=== PATIENT | female | born 1945 | race Caucasian/White ===

== ENCOUNTER 2017-03-10 13:15 | Inpatient (IN) | payer MEDICARE ==
[~2017-03-10] VITALS: Ht 165.1 cm; Wt 77.7 kg
[2017-03-10] MEDS ORDERED: SODIUM CHLORIDE 0.9% 1,000 ML IV ONE (13:37)
[2017-03-10] MEDS ORDERED: SODIUM CHLORIDE 0.9% 1,000ML IVBOLUS ONE (14:00)
[2017-03-10 14:41] LABS: BASOPHILS % (AUTO) 1 % (0-1); EOSINOPHILS # (AUTO) 0.02 x10^3/uL (0-0.4); EOSINOPHILS % (AUTO) 0 % (1-7); LYMPHOCYTES # (AUTO) 1.12 x10^3/uL (1-3.4); LYMPHOCYTES % (AUTO) 8 % (22-44); MD NO; MEAN CORPUSCULAR HEMOGLOBIN 31.2 pg (27.0-34.8); MEAN CORPUSCULAR HGB CONC 33.3 g/dL (32.4-35.8); MEAN CORPUSCULAR VOLUME 93.5 fL (80-100); MEAN PLATELET VOLUME 7.7 fL (7.4-10.4); MONOCYTES # (AUTO) 0.81 x10^3/uL (0.2-0.8); MONOCYTES % (AUTO) 6 % (2-9); NEUTROPHILS # (AUTO) 12.54 x10^3/uL (1.8-6.8); NEUTROPHILS % (AUTO) 86 % (42-75); PLATELET COUNT 226 x10^3/uL (130-400); RED BLOOD COUNT 3.69 x10^6/uL (3.82-5.3); RED CELL DISTRIBUTION WIDTH 13.8 % (9.6-15.2)
[2017-03-10 14:50] LABS: ALANINE AMINOTRANSFERASE 16 U/L (12-78); ALBUMIN 3.4 g/dL (3.4-5.0); ANION GAP 7 mmol/L (5-15); CHLORIDE 98 mmol/L (98-107); CREATININE 0.81 mg/dL (0.55-1.02)
[2017-03-10 14:53] LABS: ALKALINE PHOSPHATASE 118 U/L (45-117); BILIRUBIN,TOTAL 0.7 mg/dL (0.2-1.0); TOTAL PROTEIN 7.1 g/dL (6.4-8.2)
[2017-03-10 14:59] LABS: RAPID INFLUENZA A Negative (Negative); RAPID INFLUENZA B Negative (Negative)
[2017-03-10] MEDS ORDERED: [UNRECOGNIZED DRUG - OTHER] (15:15)
[2017-03-10] MEDS ORDERED: HYDR200T PO (15:15)
[2017-03-10] MEDS ORDERED: METH2.5T PO (15:15)
[2017-03-10] MEDS ORDERED: FURO40TA6 PO (15:15)
[2017-03-10] MEDS ORDERED: OMNIPAQUE 350 MG/ML, 100ML BOTTLE ONE (16:07)
[2017-03-10] MEDS ORDERED: CEFTRIAXONE PMX 1GM/50ML 50 ML IVPB ONE (17:00)
[2017-03-10] MEDS ORDERED: CEFTRIAXONE PMX 1GM/50ML 50 ML ONE (17:10)
[2017-03-10 17:49] VITALS: BP 133/85
[2017-03-10 17:54] VITALS: BP 133/85
[2017-03-10] MEDS ORDERED: DOCUSATE 100 MG CAPSULE PO PRN (19:00)
[2017-03-10] MEDS ORDERED: ONDANSETRON ODT 4 MG PO PRN (19:00)
[2017-03-10] MEDS ORDERED: ENALAPRILAT 1.25 MG/ML, 2ML IVPush PRN (19:00)
[2017-03-10 20:12] VITALS: BP 138/74
[2017-03-10] MEDS: PRAVASTATIN 20 MG TABLET PO SCH (20:33)
[2017-03-10] MEDS: TEMAZEPAM 15 MG CAPSULE PO PRN (20:33)
[2017-03-10] MEDS: HYDROXYCHLOROQUINE 200 MG TABLET PO SCH (20:33)
[2017-03-10] MEDS: ROPINIROLE 0.5MG TABLET PO SCH (20:33)
[2017-03-10] MEDS: ENOXAPARIN 40 MG/0.4 ML SQ SCH (20:33)
[2017-03-10] MEDS ORDERED: ALBUTEROL SULFATE 2.5 MG/3 ML ONE (22:21)
[2017-03-10] MEDS: ALBUTEROL SULFATE 2.5 MG/3 ML NPPB SCH (23:04)
[2017-03-11 02:30] VITALS: BP 109/71
[2017-03-11] MEDS: CEFTRIAXONE PMX 1GM/50ML 50 ML IV SCH ×2 (05:07→16:49)
[2017-03-11 05:22] LABS: BASOPHILS % (AUTO) 0 % (0-1); EOSINOPHILS # (AUTO) 0.04 x10^3/uL (0-0.4); EOSINOPHILS % (AUTO) 0 % (1-7); LYMPHOCYTES # (AUTO) 1.11 x10^3/uL (1-3.4); LYMPHOCYTES % (AUTO) 11 % (22-44); MD NO; MEAN CORPUSCULAR HEMOGLOBIN 31.9 pg (27.0-34.8); MEAN CORPUSCULAR HGB CONC 34.2 g/dL (32.4-35.8); MEAN CORPUSCULAR VOLUME 93.5 fL (80-100); MONOCYTES # (AUTO) 0.59 x10^3/uL (0.2-0.8); MONOCYTES % (AUTO) 6 % (2-9); NEUTROPHILS # (AUTO) 8.17 x10^3/uL (1.8-6.8); NEUTROPHILS % (AUTO) 82 % (42-75); PLATELET COUNT 189 x10^3/uL (130-400); RED BLOOD COUNT 3.26 x10^6/uL (3.82-5.3); RED CELL DISTRIBUTION WIDTH 13.3 % (9.6-15.2)
[2017-03-11 05:28] LABS: CHLORIDE 99 mmol/L (98-107)
[2017-03-11 05:32] LABS: ANION GAP 5 mmol/L (5-15); CALCIUM 8.1 mg/dL (8.5-10.1); CREATININE 0.76 mg/dL (0.55-1.02)
[2017-03-11] MEDS: ALBUTEROL SULFATE 2.5 MG/3 ML NPPB SCH ×4 (07:00→20:00)
[2017-03-11 07:59] VITALS: BP 130/85
[2017-03-11] MEDS: HYDROXYCHLOROQUINE 200 MG TABLET PO SCH ×2 (08:53→20:49)
[2017-03-11] MEDS: DULOXETINE 30 MG CAPSULE.DR PO SCH (08:53)
[2017-03-11 13:51] VITALS: BP 124/66
[2017-03-11 19:40] VITALS: BP 104/57
[2017-03-11] MEDS: TEMAZEPAM 15 MG CAPSULE PO PRN (20:47)
[2017-03-11] MEDS: PRAVASTATIN 20 MG TABLET PO SCH (20:48)
[2017-03-11] MEDS: ENOXAPARIN 40 MG/0.4 ML SQ SCH (20:49)
[2017-03-11] MEDS: ROPINIROLE 0.5MG TABLET PO SCH (20:49)
[2017-03-12] MEDS: GUAIFENESIN/DM 200-20MG, 10ML UDC PO PRN ×4 (01:03→23:58)
[2017-03-12 01:27] VITALS: BP 127/76
[2017-03-12] MEDS: CEFTRIAXONE PMX 1GM/50ML 50 ML IV SCH ×2 (04:37→17:06)
[2017-03-12] MEDS: AZITHROMYCIN 500 MG in SODIUM CHLORIDE 0.9% 250 ML IV SCH (05:16)
[2017-03-12 06:16] LABS: ALBUMIN 2.8 g/dL (3.4-5.0); ANION GAP 6 mmol/L (5-15); CHLORIDE 104 mmol/L (98-107); IRON LEVEL 19 mcg/dL (50-170)
[2017-03-12 06:24] LABS: BASOPHILS # (AUTO) 0.02 x10^3/uL (0-0.1); BASOPHILS % (AUTO) 0 % (0-1); EOSINOPHILS # (AUTO) 0.09 x10^3/uL (0-0.4); EOSINOPHILS % (AUTO) 2 % (1-7); LYMPHOCYTES # (AUTO) 0.81 x10^3/uL (1-3.4); LYMPHOCYTES % (AUTO) 14 % (22-44); MD SCAN; MEAN CORPUSCULAR HEMOGLOBIN 31.1 pg (27.0-34.8); MEAN CORPUSCULAR HGB CONC 33.2 g/dL (32.4-35.8); MEAN CORPUSCULAR VOLUME 93.7 fL (80-100); MEAN PLATELET VOLUME 7.9 fL (7.4-10.4); MONOCYTES # (AUTO) 0.44 x10^3/uL (0.2-0.8); MONOCYTES % (AUTO) 8 % (2-9); NEUTROPHILS # (AUTO) 4.46 x10^3/uL (1.8-6.8); NEUTROPHILS % (AUTO) 77 % (42-75); PLATELET COUNT 206 x10^3/uL (130-400); RED BLOOD COUNT 3.06 x10^6/uL (3.82-5.3); RED CELL DISTRIBUTION WIDTH 13.3 % (9.6-15.2)
[2017-03-12 06:34] LABS: ABSOLUTE RETICS # 0.032 x10^6/uL (0.5-2.5); RED BLOOD COUNT 3.05 x10^6/uL (3.82-5.3); RETICULOCYTE COUNT % 1.03 % (0.5-1.5)
[2017-03-12 06:43] LABS: % IRON SATURATION 6 % (20-55); FOLATE LEVEL 16.6 ng/mL (3.1-17.5); TOTAL IRON BINDING CAPACITY 326 mcg/dL (250-450)
[2017-03-12] MEDS ORDERED: ALBUTEROL/IPRATROPIUM 2.5MG/0.5MG, 3 ML ONE (06:57)
[2017-03-12] MEDS: ALBUTEROL SULFATE 2.5 MG/3 ML NPPB SCH ×4 (07:00→20:00)
[2017-03-12 07:05] VITALS: BP 166/83
[2017-03-12] MEDS: DULOXETINE 30 MG CAPSULE.DR PO SCH (10:16)
[2017-03-12] MEDS: HYDROXYCHLOROQUINE 200 MG TABLET PO SCH ×2 (10:17→20:53)
[2017-03-12] MEDS: BENZONATATE 100 MG CAPSULE PO SCH ×3 (12:45→20:53)
[2017-03-12 13:15] VITALS: BP 118/71
[2017-03-12] MEDS: CHOLECALCIFEROL 400 UNITS TABLET PO SCH ×3 (14:39→20:53)
[2017-03-12] MEDS: ROPINIROLE 0.5MG TABLET PO PRN ×2 (14:42→20:53)
[2017-03-12 20:04] VITALS: BP 106/66
[2017-03-12] MEDS: PRAVASTATIN 20 MG TABLET PO SCH (20:52)
[2017-03-12] MEDS: ENOXAPARIN 40 MG/0.4 ML SQ SCH (20:53)
[2017-03-13 01:32] VITALS: BP 106/65
[2017-03-13] MEDS: ACETAMINOPHEN 325 MG TABLET PO PRN (03:21)
[2017-03-13] MEDS: CEFTRIAXONE PMX 1GM/50ML 50 ML IV SCH (04:49)
[2017-03-13] MEDS: AZITHROMYCIN 500 MG in SODIUM CHLORIDE 0.9% 250 ML IV SCH (05:33)
[2017-03-13 07:40] VITALS: BP 115/65
[2017-03-13] MEDS: ALBUTEROL SULFATE 2.5 MG/3 ML NPPB SCH ×4 (07:45→19:12)
[2017-03-13] MEDS: HYDROXYCHLOROQUINE 200 MG TABLET PO SCH ×2 (08:52→20:24)
[2017-03-13] MEDS: CHOLECALCIFEROL 400 UNITS TABLET PO SCH ×3 (08:53→20:24)
[2017-03-13] MEDS: DULOXETINE 30 MG CAPSULE.DR PO SCH (08:53)
[2017-03-13] MEDS: GUAIFENESIN/DM 200-20MG, 10ML UDC PO PRN ×2 (08:53→17:03)
[2017-03-13] MEDS: BENZONATATE 100 MG CAPSULE PO SCH ×3 (08:53→20:24)
[2017-03-13] MEDS ORDERED: MAGNESIUM CITRATE 300ML ORAL SOL PO PRN (12:30)
[2017-03-13] MEDS ORDERED: POLYETHYLENE GLYCOL 17 GM PACKET PO ONE (12:30)
[2017-03-13] MEDS ORDERED: GLYCERIN ADULT SUPP PR PRN (12:30)
[2017-03-13 13:37] LABS: BASOPHILS # (AUTO) 0.02 x10^3/uL (0-0.1); BASOPHILS % (AUTO) 0 % (0-1); EOSINOPHILS # (AUTO) 0.17 x10^3/uL (0-0.4); EOSINOPHILS % (AUTO) 3 % (1-7); LYMPHOCYTES # (AUTO) 1.12 x10^3/uL (1-3.4); LYMPHOCYTES % (AUTO) 18 % (22-44); MD NO; MEAN CORPUSCULAR HEMOGLOBIN 31.5 pg (27.0-34.8); MEAN CORPUSCULAR HGB CONC 33.6 g/dL (32.4-35.8); MEAN PLATELET VOLUME 7.9 fL (7.4-10.4); MONOCYTES # (AUTO) 0.68 x10^3/uL (0.2-0.8); MONOCYTES % (AUTO) 11 % (2-9); NEUTROPHILS # (AUTO) 4.13 x10^3/uL (1.8-6.8); NEUTROPHILS % (AUTO) 67 % (42-75); PLATELET COUNT 228 x10^3/uL (130-400); RED BLOOD COUNT 3.21 x10^6/uL (3.82-5.3); RED CELL DISTRIBUTION WIDTH 13.8 % (9.6-15.2)
[2017-03-13 13:44] LABS: ALBUMIN 2.9 g/dL (3.4-5.0); ANION GAP 4 mmol/L (5-15); CALCIUM 7.9 mg/dL (8.5-10.1); CHLORIDE 103 mmol/L (98-107); CREATININE 0.73 mg/dL (0.55-1.02)
[2017-03-13 13:55] VITALS: BP 121/66
[2017-03-13] MEDS: CEFTRIAXONE 1,000 MG in DEXTROSE 5% 50 ML IV SCH (17:03)
[2017-03-13 18:42] LABS: OCCULT BLOOD POSITIVE (NEGATIVE)
[2017-03-13 20:05] VITALS: BP 149/78
[2017-03-13] MEDS: ENOXAPARIN 40 MG/0.4 ML SQ SCH (20:24)
[2017-03-13] MEDS: PRAVASTATIN 20 MG TABLET PO SCH (20:24)
[2017-03-13] MEDS: TEMAZEPAM 15 MG CAPSULE PO PRN (20:33)
[2017-03-14 01:42] VITALS: BP 116/66
[2017-03-14] MEDS: CEFTRIAXONE 1,000 MG in DEXTROSE 5% 50 ML IV SCH (05:02)
[2017-03-14] MEDS: ACETAMINOPHEN 325 MG TABLET PO PRN ×2 (05:03→09:26)
[2017-03-14] MEDS: AZITHROMYCIN 500 MG in SODIUM CHLORIDE 0.9% 250 ML IV SCH (05:49)
[2017-03-14 06:50] VITALS: BP 119/76
[2017-03-14] MEDS: ALBUTEROL SULFATE 2.5 MG/3 ML NPPB SCH (08:05)
[2017-03-14] MEDS ORDERED: LEVO750T26 PO (08:50)
[2017-03-14] MEDS ORDERED: SUMA50TA4 PO (08:50)
[2017-03-14] MEDS ORDERED: LEVOFLOXACIN 750 MG TABLET PO SCH (09:00)
[2017-03-14] MEDS ORDERED: SUMATRIPTAN 50 MG TABLET PO PRN (09:00)
[2017-03-14] MEDS: CHOLECALCIFEROL 400 UNITS TABLET PO SCH (09:26)
[2017-03-14] MEDS: BENZONATATE 100 MG CAPSULE PO SCH (09:27)
[2017-03-14] MEDS: GUAIFENESIN/DM 200-20MG, 10ML UDC PO PRN (09:27)
[2017-03-14] MEDS: HYDROXYCHLOROQUINE 200 MG TABLET PO SCH (09:28)
[2017-03-14] MEDS: DULOXETINE 30 MG CAPSULE.DR PO SCH (09:29)
== END 2017-03-14 10:37 | disposition home or self-care (01) | DRG 871 ==
LOC: ED 16:43 → EDIP 16:44 → ED 16:56 → 3NE 17:27 → DCLOUNGE 03-14 10:26
PROVIDERS: ADMIT Internal Medicine; ATTEND Internal Medicine
DX: A41.9 Sepsis, unspecified organism (principal); J15.9 Unspecified bacterial pneumonia; E83.51 Hypocalcemia; E78.5 Hyperlipidemia, unspecified; D50.9 Iron deficiency anemia, unspecified; F17.210 Nicotine dependence, cigarettes, uncomplicated; G25.81 Restless legs syndrome; I10 Essential (primary) hypertension; K58.9 Irritable bowel syndrome, unspecified; M79.7 Fibromyalgia; Z96.642 Presence of left artificial hip joint; G43.909 Migraine, unspecified, not intractable, without status migrainosus; M06.9 Rheumatoid arthritis, unspecified; N32.81 Overactive bladder
CPT/HCPCS: 36415; 71046; 71250; 71275; 80048; 80053; 82040; 82272; 82306; 82607; 82728; 82746; 83540; 83550; 83605; 83690; 83735; 83970; 85025; 85045; 87040; 87400; 93005; 94640; 96361; 96374; J0456; J0696; J1650; J7613; Q9967; J7030; J7050